=== PATIENT | male | born 1960 | race Caucasian/White ===

== ENCOUNTER 2022-12-25 11:04 | Emergency (ER) | payer OTHER ==
[~2022-12-25] VITALS: Ht 162.6 cm; Wt 68.0 kg
--- NOTE | 2022-12-25 11:05 | NUR ---
RECEIVED PT 62 YRS MALE CAME BY [facility]/116MM[facility] AWAKE AND ALERT NO WEEKNESS OR DIFFETY SEEN BY DR. SUN AT BED SIDE
[2022-12-25] MEDS ORDERED: hydrALAZINE HCL 50 MG TABLET ONE (11:23)
[2022-12-25] MEDS ORDERED: hydrALAZINE HCL 25 MG TABLET PO ONE (11:30)
--- NOTE | 2022-12-25 11:45 | NUR ---
RESTIG NO PAIN AT THIS TIME
--- NOTE | 2022-12-25 13:20 | NUR ---
DR. SUN AWARE ABOUT BP87/117MMHG HR 101 B/MIN OK TO D/C HOME NOW PT WILL TAKE HIS BP MEDICTION AT HOME FULLY AND VERBLIZED UNDERSTOOD D/C HOME DINESES PAIN OR weekness or headack
--- NOTE | 2022-12-25 13:30 | NUR ---
Patient discharged to home in stable condition. Written and verbal after care instructions given. Patient verbalizes understanding of instruction.
[2022-12-25 13:41] VITALS: BP 187/117; TEMP 98
== END 2022-12-25 13:41 | disposition home or self-care (01) ==
LOC: ER 11:38
DX: R03.0 Elevated blood-pressure reading, without diagnosis of hypertension (principal); I10 Essential (primary) hypertension